=== PATIENT | female | born 1960 ===

== ENCOUNTER → 2020-11-28 | Outpatient (REF) ==
--- NOTE | 2020-12-01 16:40 | SLEEPHOME ---
DIAGNOSTIC HOME SLEEP TEST DATE: 11/28/2020 ORDERED BY: [facility] home sleep testing was performed due to concern for the obstructive sleep apnea syndrome in this patient with a history of excessive somnolence. For testing, a nocturnal T3 respiratory monitoring device was used. Continuous record was made of pulse, oxygen saturation, air flow, chest and abdominal strain, and body position. 5 hours and 59 minutes of data were reviewed. There were 5 hours and 59 minutes marked as time in bed. During the interval marked time in bed, there were 57 respiratory events identified of 10 seconds in duration or greater for a respiratory event index 9.5 per hour. The events were primarily obstructive. Baseline pulse rate 87. Pulse rate range 63 to 110. Baseline saturation was 92. Saturations fell to 84%. Testing was performed in both the supine and non-supine positions. IMPRESSION: Abnormal home sleep testing with repetitive respiratory events and oxygen desaturations to 84% with a respiratory event index of 9.5 is consistent with the obstructive sleep apnea syndrome. RECOMMENDATION: The patient should be encouraged to undergo formal sleep evaluation and referred for sleep consultation.
== END ==
LOC: M SLEEP HO 10:31
DX: G47.10 Hypersomnia, unspecified (principal)